=== PATIENT | male | born 1985 | race Caucasian/White ===

== ENCOUNTER 2021-08-27 11:02 | Emergency (ER) | payer OTHER ==
[~2021-08-27 11:02] MED LIST: BENTYL 20MG TAB20 MG PO; LODINE CAP 300300 MG PO; ZOFRAN ODT 4 MG4 MG PO
[2021-08-27 13:13] LABS: HEMOGLOBIN 15.4 gm/dl (14.0-17.5); RED BLOOD COUNT 5.05 M/UL (4.20-5.50); WHITE BLOOD COUNT 8.2 K/UL (4.5-11.0)
[2021-08-27 13:41] LABS: BUN/CREATININE RATIO 14 (0-10)
== END 2021-08-27 14:29 | disposition home or self-care (01) ==
LOC: ER1 11:02
PROVIDERS: Emergency Medicine
DX: I10 Essential (primary) hypertension (principal); F17.200 Nicotine dependence, unspecified, uncomplicated
CPT/HCPCS: 71045; 80053; 82550; 82553; 83874; 84484; 85025; 93005; 99284

== ENCOUNTER 2021-12-29 22:43 | Emergency (ER) | payer OTHER ==
[2021-12-29 23:28] LABS: HEMOGLOBIN 15.5 gm/dl (14.0-17.5); RED BLOOD COUNT 5.05 M/UL (4.20-5.50); WHITE BLOOD COUNT 10.5 K/UL (4.5-11.0)
[2021-12-29 23:49] LABS: BUN/CREATININE RATIO 15 (0-10)
== END 2021-12-30 02:00 | disposition left against medical advice (07) ==
LOC: ER1 22:43
PROVIDERS: Family Medicine
DX: R07.9 Chest pain, unspecified (principal); R06.02 Shortness of breath; R11.0 Nausea; I10 Essential (primary) hypertension; F17.210 Nicotine dependence, cigarettes, uncomplicated
CPT/HCPCS: 71046; 80053; 82550; 82553; 84484; 85025; 93005; 99281